=== PATIENT | male | born 1980 | race Caucasian/White ===

== ENCOUNTER 2022-08-03 04:08 | Emergency (ER) | payer OTHER ==
[2022-08-03] MEDS ORDERED: AMOXICILLIN 250 MG CAPSULE PO STA (04:46)
--- NOTE | 2022-08-03 04:50 | ED Physician Documentation ---
PD HPI HEENT - Stated complaint Stated Complaint: RT JAW INJ - Chief complaint Chief Complaint: Heent - History obtained from History obtained from: Patient - Additional information Additional information: The patient comes to the emergency department with chief complaint of right mandibular pain around the area of his mandibular angle. He states he has a molar that is bothering him there and that last month, he had to take a course of amoxicillin. He has an appointment with the dentist coming up sometime in the future, but does not remember exactly when. He states that he has been fine since his last antibiotic course but that his kids recently got a viral syndrome and he began to feel sick yesterday with a sore throat and some body aches. Patient states he went to bed last night and woke up in the middle the night with his right mandible throbbing. He states he did not get injured. He feels the pain radiating up behind his ear and down the side of his neck. He states he has a bit of a sore throat so he cannot tell if the throat is swollen but he does not think that it is. He denies any swelling of his tongue or face. No drainage. Patient states he is already had his wisdom teeth removed and that this is one of the other molars. No fevers or chills. No other complaints at this time. Patient states that mainly, he would like to restart antibiotics if that is agreeable. PD PAST MEDICAL HISTORY - Past Medical History Past Medical History: No - Past Surgical History Past Surgical History: No - Present Medications Home Medications: Ambulatory Orders Medication Instructions Recorded Confirmed Amoxicillin 500 mg PO TID 7 Days #21 cap 08/03/22 HYDROcod/ACETAM 5/325 [[place] 5/325] 1 - 2 tablet PO Q6H PRN #10 tablet 08/03/22 - Allergies Allergies/Adverse Reactions: Allergies Allergy/AdvReac Type Severity Reaction Status Date / Time No Known Drug Allergies Allergy Verified 08/03/22 04:19 - Social History Does the pt smoke?: No Smoking Status: Never smoker Does the pt drink ETOH?: No Does the pt have substance abuse?: No - Immunizations Immunizations are current?: Yes - POLST Patient has POLST: No PD ED PE NORMAL - Vitals Vital signs reviewed: Yes - General General: Alert and oriented X 3, No acute distress, Well developed/nourished - HEENT HEENT: Atraumatic (No facial swelling.), PERRL, EOMI, Moist mucous membranes, Pharynx benign, Other (Reasonably good dentition with multiple fillings. The first right mandibular molar is noted to have a portion missing adjacent to a filling. No gingival edema or tenderness. No tenderness of the floor of mouth) - Neck Neck: Supple, no meningeal sign, No adenopathy - Respiratory Respiratory: No respiratory distress - Derm Derm: Normal color, Warm and dry, No rash - Extremities Extremities: No deformity - Neuro Neuro: Alert and oriented X 3 - Psych Psych: Normal mood, Normal affect Results - Vitals Vitals: Vital Signs - 24 hr 08/03/22 04:14 Temperature 35.7 C L Heart Rate 52 L Respiratory 16 Rate Blood Pressure 150/105 H O2 Saturation 99 Oxygen O2 Source Room air PD Medical Decision Making - ED course Complexity details: considered differential, d/w patient ED course: I discussed with the patient that probably amoxicillin will be helpful for him. We have discussed symptomatic management at home and I have prescribed a few Vicodin for him. We have discussed the usual indications for return. Departure - Departure Disposition: 01 Home, Self Care Clinical Impression: Pain due to dental caries Condition: Stable Instructions: ED Tooth Pain Prescriptions: Amoxicillin 500 mg PO TID 7 Days #21 cap HYDROcod/ACETAM 5/325 [[place] 5/325] 1 - 2 tablet PO Q6H PRN #10 tablet PRN Reason: Pain Comments: The prescription for your antibiotic and pain medication has been electronically transmitted to the [facility] pharmacy in [place].
[2022-08-03 05:21] VITALS: BP 142/99
== END 2022-08-03 05:21 | disposition home or self-care (01) ==
LOC: ED 04:08
DX: K02.9 Dental caries, unspecified (principal)
CPT/HCPCS: 99282; 99283; A9270